=== PATIENT | male | born 1975 | race Caucasian/White ===

== ENCOUNTER → 2018-06-06 | Outpatient (CLI) | payer BC ==
--- NOTE | 2018-06-06 09:45 | KCIC ---
EXAM: AP view of skull/orbits DATE: 06/06/2018 CLINICAL HISTORY: Pre-MRI COMPARISON: None available. FINDINGS: Single view of the skull is negative for retained radiopaque foreign body projected at the orbits or visualized calvarium. Negative definite fracture. Limited profile regional paranasal sinuses negative for air/fluid level. Multifocal dental amalgam is incidentally seen. IMPRESSION: Negative frontal view for retained radiopaque foreign body. Electronically signed by: Sohail Allen MD (06/06/2018 9:42 AM) [id number]
--- NOTE | 2018-06-06 13:38 | KCIC ---
MRI of the lumbar spine without contrast 06/06/2018 CLINICAL HISTORY: Chronic low back pain which radiates down the right leg. TECHNIQUE: Unenhanced T1-weighted and T2-weighted sagittal and axial an inversion recovery sagittal images of the lumbar spine were obtained. FINDINGS: Comparison study is dated 11/23/2011. Minimal S-shaped curvature of the thoracolumbar spine is seen. Degenerative signal changes are seen involving the L3-4, L4-5 and L5-S1 discs. Degenerative signal changes are seen within the marrow surrounding these discs. Loss of height of the L4-5 disc is seen. The conus medullaris is normal morphology, position, and signal characteristics. The L1-2 and L2-3 disc spaces are within normal limits. At the L3-4 disc space there is a moderate generalized disc bulge. Superimposed on this disc bulge is a central/right paracentral focal disc protrusion. This measures 5 mm in AP diameter. Degenerative changes are seen involving the facet joints bilaterally. There are small facet joint effusions. There is mild ligamentum flavum hypertrophy bilaterally. There is prominence of the posterior epidural fat. These findings when combined result in mild to moderate central spinal canal stenosis. No neural foraminal stenosis is seen. At the L4-5 disc space there is a mild to moderate generalized disc bulge. This is eccentric to the left. Superimposed on this disc bulge is a central/left paracentral focal disc protrusion. This measures 4 mm in AP diameter. Degenerative changes are seen involving the facet joints bilaterally. There is mild ligamentum flavum hypertrophy bilaterally. These findings when combined result in mild to moderate left greater than right central spinal canal stenosis. Mild to moderate left neural foraminal stenosis is seen. The right neural foramen is patent. At the L5-S1 disc space there is a moderate generalized disc bulge. This eccentric to the right. Degenerative changes are seen involving the facet joints bilaterally. There is mild ligamentum flavum hypertrophy bilaterally. These findings when combined do not result in significant central spinal canal stenosis. Mild right neural foraminal stenosis is seen. The left neural foramen is patent. The degenerative changes at L3-4 have progressed since the previous study. IMPRESSION: The changes of degenerative disc disease are seen throughout the mid and lower lumbar spine. These findings result in mild to moderate central spinal canal stenosis at L3-4 and mild to moderate left greater than right central spinal canal stenosis at L4-5. Mild to moderate left neural foraminal stenosis is seen at L4-5. Mild right neural foraminal stenosis is seen at L5-S1. Electronically signed by: Lai Harry MD (06/06/2018 1:35 PM) [facility]
== END | disposition home or self-care (01) ==
LOC: KCIC MRI 09:13
PROVIDERS: ATTEND Physician Assistant Medical
DX: Z01.00 Encounter for examination of eyes and vision without abnormal findings (principal); M47.817 Spondylosis without myelopathy or radiculopathy, lumbosacral region; M51.36 Other intervertebral disc degeneration, lumbar region; M48.07 Spinal stenosis, lumbosacral region; M51.27 Other intervertebral disc displacement, lumbosacral region; M25.48 Effusion, other site
CPT/HCPCS: 70030; 72148

== ENCOUNTER → 2021-05-12 | Outpatient (CLI) | payer BC, OTHER ==
--- NOTE | 2021-05-12 10:10 | KCIC ---
CT SCREENING FOR CORONARY ARTERY History: Reason: Mixed hyperlipidemia. / Spl. Instructions: / History: Technique: With retrospective electrocardiogram gating axial reconstructed noncontrast images of the chest at the level of the coronary arteries was performed. Images were post processed on workstation and calcium score calculated using the modified Agatston Janowitz protocol. Exposure: One or more of the following individualized dose reduction techniques were utilized for thi s examination: 1. Automated exposure control 2. Adjustment of the mA and/or kV according to patient size 3. Use of iterative reconstruction technique. Comparison: None Findings: Total coronary calcium score is 0. There is no plaque burden and low cardiovascular disease risk. This is based on the calcium score of 0 of the left main coronary artery, 0 of the left anteri or descending artery, score of 0 of the left circumflex artery and score of 0 of the right coronary a rtery. Noncoronary findings: No significant incidental findings. IMPRESSION: 1. Low cardiovascular disease risk. Calcium score 0. Electronically signed by: Venkata Darling DO (05/12/2021 10:07 AM) [facility]
== END ==
LOC: KCIC CT 09:35
PROVIDERS: ATTEND Family Medicine
DX: I25.10 Atherosclerotic heart disease of native coronary artery without angina pectoris (principal); E78.49 Other hyperlipidemia
CPT/HCPCS: 75571